=== PATIENT | male | born 1990 | race Caucasian/White ===

== ENCOUNTER 2025-10-24 11:04 | Outpatient (CLI) | payer OTHER, SELFPAY | END 2025-10-24 11:05 | disposition home or self-care (01) | PROVIDERS: PCP Nurse Practitioner Family; Visit Provider Nurse Practitioner Family | DX: Z00.00 Encounter for general adult medical examination without abnormal findings (principal); M25.562 Pain in left knee; R53.83 Other fatigue | CPT/HCPCS: 80053; 80061; 84403; 85025; 85651; 86038; 86140; 86200; 86431 ==